=== PATIENT | female | born 1945 | race Caucasian/White ===

== ENCOUNTER 2019-01-20 13:57 | Emergency (ER) | payer MEDICARE, BC ==
[2019-01-20 14:20] VITALS: BP 143/89
--- NOTE | 2019-01-20 14:40 | UC ---
Skin Complaint HPI - HPI Summary HPI Summary: 73 yo female has been dealing with cleaning her sisters yard and home Itch rash x days...getting worse painful insect bite x days runny nose cough no known tick bites has been pulling weeds - History of Current Complaint Chief Complaint: UCSkin Time Seen by Provider: 01/20/19 14:33 Stated Complaint: SKIN ISSUE Hx Obtained From: Patient Onset/Duration: Gradual Onset, Lasting Days Skin Exposure Onset/Duration: Days Ago Onset Severity: Mild Current Severity: Moderate Pain Intensity: 0 Pain Scale Used: 0-10 Numeric Location: Other - arms>legs>trunk>face Character: Pain - right arm only Aggravating Factor(s): Nothing Alleviating Factor(s): Nothing Associated Signs & Symptoms: Positive: Rash, Tenderness Related History: Insect Bite/Sting - Allergy/Home Medications Allergies/Adverse Reactions: Allergies Allergy/AdvReac Type Severity Reaction Status Date / Time No Known Allergies Allergy Verified 01/20/19 14:20 Home Medications: Home Medications NK [No Home Medications Reported] 01/20/19 [History Confirmed 01/20/19] PMH/Surg Hx/FS Hx/Imm Hx Previously Healthy: Yes - Surgical History Surgical History: Yes Surgery Procedure, Year, and Place: R hip replacement - Family History Known Family History: Positive: None - Social History Alcohol Use: Occasionally Substance Use Type: None Smoking Status (MU): Never Smoked Tobacco - Immunization History Most Recent Influenza Vaccination: none Review of Systems All Other Systems Reviewed And Are Negative: Yes Constitutional: Positive: Negative Skin: Positive: Rash Eyes: Positive: Negative ENT: Positive: Negative Respiratory: Positive: Negative Cardiovascular: Positive: Negative Gastrointestinal: Positive: Negative Genitourinary: Positive: Negative Motor: Positive: Negative Neurovascular: Positive: Negative Musculoskeletal: Positive: Negative Neurological: Positive: Negative Psychological: Positive: Negative Physical Exam Triage Information Reviewed: Yes Appearance: Well-Appearing, No Pain Distress, Well-Nourished Vital Signs: Initial Vital Signs Temp 98 F 01/20/19 14:18 Pulse 89 01/20/19 14:18 Resp 19 01/20/19 14:18 BP 143/89 01/20/19 14:18 Pulse Ox 100 01/20/19 14:18 Eye Exam: Normal Eyes: Positive: Conjunctiva Clear ENT: Positive: Hearing grossly normal. Negative: Nasal congestion, Nasal drainage, Trismus, Muffled voice, Hoarse voice Dental Exam: Normal Neck: Positive: Supple, Nontender, No Lymphadenopathy Respiratory: Positive: Lungs clear, Normal breath sounds, No respiratory distress, No accessory muscle use Cardiovascular: Positive: RRR, No Murmur Musculoskeletal: Positive: ROM Intact, No Edema Neurological: Positive: Alert Psychological Exam: Normal Skin Exam: Other - rash c/w contact derm on arms/trunk/face/legs Images Front/Back of Body, Lg ([place]): 1 - center bite site with 2 cm ring of eccymosis suspicious of spider bite Course/Dx - Diagnoses Provider Diagnosis: Spider bite, Contact dermatitis, Elevated BP without diagnosis of hypertension Discharge ED - Sign-Out/Discharge Documenting (check all that apply): Patient Departure All imaging exams completed and their final reports reviewed: No Studies - Discharge Plan Condition: Stable Disposition: HOME Patient Education Materials: Contact Dermatitis (ED) Referrals: No Primary Care Phys,NOPCP [Primary Care Provider] - Additional Instructions: return for new or worsening symptoms your BP was a little high here I suggest you get it rechecked in 2-5 weeks - Billing Disposition and Condition Condition: STABLE Disposition: Home
[2019-01-20] MEDS ORDERED: Triamcinolone Acetonide* 40 MG/ML 1 ML VIAL IM ONE (14:45)
== END 2019-01-20 15:13 | disposition home or self-care (01) ==
LOC: UCEAST 13:57
DX: T14.8XXA Other injury of unspecified body region, initial encounter (principal); W57.XXXA Bitten or stung by nonvenomous insect and other nonvenomous arthropods, initial encounter; Y92.9 Unspecified place or not applicable; L25.9 Unspecified contact dermatitis, unspecified cause; R03.0 Elevated blood-pressure reading, without diagnosis of hypertension
CPT/HCPCS: 96372; 99211; G0463; J3301

== ENCOUNTER 2019-01-28 09:18 | Emergency (ER) | payer MEDICARE, BC ==
[2019-01-28 09:26] VITALS: BP 142/86
--- NOTE | 2019-01-28 10:13 | UC ---
Skin Complaint HPI - HPI Summary HPI Summary: 73 y/o female presents to the urgent care c/o of itchy radh in b/L arms and some B/L lower legs for the past 9 days. Pt reports she was seen here at the urgent care on 01/20/2019 after she cleaned her sisters back yard and Dx w/ Spider bite on her RT arm and contact dermatitis. She was given Triamcinolone inj and spider bite resolved. However the rash only improved for 2 days and now is spreading in her lower legs. She has been taking Benadryl Po w/o any improvement. She thinks it is poison alexandrea b/c she has had it in the past. Pt denies fever, cough, throat tightening , SOB, chest pain,abdominal pain, N/V/D. - History of Current Complaint Chief Complaint: UCRash Time Seen by Provider: 01/28/19 10:10 Stated Complaint: RECHECK OF RASH Hx Obtained From: Patient Onset/Duration: Gradual Onset, Lasting Weeks - 1 week, Still Present, Worse Since - 2 days w/ a lot of itching Skin Exposure Onset/Duration: Weeks Ago - 1 week Timing: Constant Onset Severity: Mild Current Severity: Moderate Pain Intensity: 6 - all over due to itchiness Pain Scale Used: 0-10 Numeric Location: Generalized - B/L arms and legs and chest w/ itchy rash Character: Pruritus, Pain, Hives, Redness Aggravating Factor(s): Touch Alleviating Factor(s): OTC Meds, Other - TTriamcinolone IM inj Associated Signs & Symptoms: Positive: Rash - B/L arms and legs and chest w/ itchy rash, Tenderness. Negative: Nausea, Vomiting, Numbness, Fever, Chills, Cough, Wheezing, Chest Pain, Hoarseness, Drainage, Bruising Related History: Possible Reaction to: Environmental Exposure - Allergy/Home Medications Allergies/Adverse Reactions: Allergies Allergy/AdvReac Type Severity Reaction Status Date / Time No Known Allergies Allergy Verified 01/28/19 09:19 PMH/Surg Hx/FS Hx/Imm Hx Previously Healthy: Yes Cardiovascular History: Hypertension - Surgical History Surgical History: Yes Surgery Procedure, Year, and Place: R hip replacement - Family History Family History: Colon and lung cancer - Social History Occupation: Retired Lives: With Family Alcohol Use: Occasionally Substance Use Type: None Smoking Status (MU): Never Smoked Tobacco - Immunization History Most Recent Influenza Vaccination: none Review of Systems All Other Systems Reviewed And Are Negative: Yes Constitutional: Positive: Negative, Other - body aches Skin: Positive: Rash - B/L arms and legs and chest w/ itchy rash getting worse despite triamcinolone IM inj 1 week ago ENT: Positive: Negative Respiratory: Positive: Negative Cardiovascular: Positive: Negative Gastrointestinal: Positive: Negative Genitourinary: Positive: Negative Motor: Positive: Negative Neurovascular: Positive: Negative Musculoskeletal: Positive: Negative Neurological: Positive: Negative Psychological: Positive: Negative Is Patient Immunocompromised?: No Physical Exam - Summary Physical Exam Summary: Vital Signs Reviewed: Yes General: well appearing, well nourished female in no acute apparent pain distress, sitting comfortably on examining table Eye Exam: Normal Eyes: Positive: Conjunctiva Clear - PERRLA< EOMI, fundi grossly normal ENT: Positive: Normal ENT inspection, Hearing grossly normal, Pharynx normal, TMs normal Neck: Positive: Supple, Nontender, No Lymphadenopathy Respiratory: Positive: Chest non-tender, Lungs clear, Normal breath sounds, No respiratory distress Cardiovascular: Positive: RRR, No Murmur, Pulses Normal, Brisk Capillary Refill Abdomen Description: Positive: Nontender, No Organomegaly, Soft. Negative: CVA Tenderness (R), CVA Tenderness (L) Bowel Sounds: Positive: Present Musculoskeletal: Positive: Strength Intact, ROM Intact, No Edema Neurological: Positive: Alert, Muscle Tone Normal Psychological Exam: Normal Skin: Positive: B/L arms and legs and upper chest w/ scattered erythematous blisters and vesicles, particularly in linear streaks w/ mild signs of excoriation, no drainage observed, non tender to palpation. Triage Information Reviewed: Yes Vital Signs: Initial Vital Signs Temp 99 F 01/28/19 09:23 Pulse 81 01/28/19 09:23 Resp 18 01/28/19 09:23 BP 142/86 01/28/19 09:23 Pulse Ox 100 01/28/19 09:23 Course/Dx - Course Course Of Treatment: 73 y/o female presents to the urgent care c/o of itchy radh in b/L arms and some B/L lower legs for the past 9 days. Pt reports she was seen here at the urgent care on 01/20/2019 after she cleaned her sisters back yard and Dx w/ Spider bite on her RT arm and contact dermatitis. She was given Triamcinolone inj and spider bite resolved. However the rash only improved for 2 days and now is spreading in her lower legs. She has been taking Benadryl Po w/o any improvement. She thinks it is poison alexandrea b/c she has had it in the past. Pt denies fever, cough, throat tightening , SOB, chest pain,abdominal pain, N/V/D. Hx obtained. pt w/ possible poison alexandrea dermatitis on examination.PT Rx Triamcinolone topical cream and Prednisone PO. Advised to continue taking Benadryl PO to alleviate itchiness. Pt advised if not improvement or worsening of symptoms to return to the clinic or f/u with PCP or [facility] Prajapati for further treatment.Pt's BP is elevated today advised to decrease salt in diet, monitor BP and f/u with PCP for further management. D/C instructions explained. PT understood and agreed with plan of care. - Differential Diagnoses - Skin Complaint Differential Diagnoses: Abscess, Cellulitis, Contact Dermatitis, Local Allergic Reaction, Poison Alexandrea, Poison [place], Scabies, Tick Born Illness, Tinea, Urticaria - Diagnoses Provider Diagnosis: Poison alexandrea dermatitis, Uncontrolled hypertension Discharge ED - Sign-Out/Discharge Documenting (check all that apply): Patient Departure - D/C home All imaging exams completed and their final reports reviewed: No Studies - Discharge Plan Condition: Stable Disposition: HOME Prescriptions: predniSONE TAB* [Deltasone 20 MG TAB*] 20 mg PO DAILY #11 tab Triamcinolone 0.1% CREAM (NF) [Kenalog 0.1% Cream (NF)] 1 applic .SEE ORDER BID #1 applic Patient Education Materials: Poison Alexandrea (ED) Referrals: [facility] [Outside] - 3 Days Marie Prajapati [Medical Doctor] - 3 Days Additional Instructions: 1-Please Start taking Prednisone PO taper dose as directed 2- Continue taking Benadryl PO to alleviate itchiness. Apply topical Triamcinolone cream as directed to alleviate symptoms. Avoid exposure to the sun. 3-If symptoms do not improve or worsen please f/u with your PCP or [facility] Dr Prajapati in 3 days for further evaluation and treatment. 4- If symptoms worsen and you develop SOB or difficulty breathing or fever please go immediately to the Er for further management. 5- Your BP is elevated today. please decrease salt in your diet, monitor BP and if it continues to be elevated please f/u with your PCP for further management. - Billing Disposition and Condition Condition: STABLE Disposition: Home - Attestation Statements Provider Attestation: Per institutional requirements, I have reviewed the chart, however, I was not consulted specifically or made aware of this patient by the midlevel provider. I did not personally evaluate, interact with , or disposition this patient.
== END 2019-01-28 11:09 | disposition home or self-care (01) ==
LOC: UCEAST 09:18
DX: L23.7 Allergic contact dermatitis due to plants, except food (principal); I10 Essential (primary) hypertension
CPT/HCPCS: 99212; G0463